=== PATIENT | female | born 2000 | race Two or more races ===

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

== ENCOUNTER 2024-06-02 11:35 | Emergency (ER) | payer OTHER ==
[~2024-06-02] VITALS: Ht 165.1 cm; Wt 56.7 kg
[2024-06-02] MEDS ORDERED: CEFTRIAXONE SODIUM 1,000 MG VIAL ONE (12:10)
[2024-06-02] MEDS ORDERED: CEFTRIAXONE SODIUM 1,000 MG VIAL IV ONE (12:15)
[2024-06-02 12:37] LABS: HEMATOCRIT 32.2 % (36.0-45.00); HEMOGLOBIN 10.4 g/dL (12.0-15.00); MEAN CELL VOLUME 82.3 fL (80.00-100.00); MEAN CORPUSCULAR HEMOGLOBIN 26.7 pg (27.00-32.0); MEAN CORPUSCULAR HGB CONC 32.4 g/dl (32.0-36.0); PLATELET COUNT 411 K/uL (150-450); RED BLOOD COUNT 3.91 M/uL (4.00-6.00); RED CELL DISTRIBUTION WIDTH 16.9 % (11.5-14.5)
== END 2024-06-02 13:59 | disposition home or self-care (01) ==
LOC: ER 11:36
PROVIDERS: Emergency Medicine
DX: N76.4 Abscess of vulva (principal)